=== PATIENT | female | born 1990 | race Caucasian/White ===

== ENCOUNTER 2017-10-03 19:35 | Emergency (ER) | payer MEDICAID, SELFPAY ==
[2017-10-03 19:38] VITALS: BP 138/84; PULSE 116; RESP 26; TEMP 36.7; O2SAT 98; BMI 28.2
[2017-10-03 21:28] LABS: Amphetamine Urine VISTA POSITIVE (<1000 ng/mL); Barbiturate Urine VISTA NEGATIVE (< 200 ng/mL); Benzodiazepine Urine VISTA NEGATIVE (< 200 ng/mL); Cocaine Urine VISTA NEGATIVE (< 300 ng/mL); Ecstacy Urine VISTA POSITIVE (< 500 ng/mL); Methadone Urine VISTA NEGATIVE (< 300 ng/mL); PCP Urine VISTA NEGATIVE (< 25 ng/mL); THC Urine VISTA NEGATIVE (< 50 ng/mL); Vista UDS pH Range 6
--- NOTE | 2017-10-03 21:44 | ED.DCSUM_ITS ---
- ER Visit Summary Date of Service: 10/03/17 Chief Complaint: I do not remember History of Present Illness: The patient is a 26 F with a history of drug abuse and prior heroin overdose who presents with suspected opiate overdose. She was found in a parking lot unresponsive in her vehicle with child in the car. She was ashen with agonal respirations. She responded to Narcan. The patient states that she does not remember what happened beforehand. She states she believes she was on her way to a doctor's appointment. She remembers getting up this morning. When asked if she used any illicit drugs she stated she did not know. On pressing further she states I guess maybe heroin. Currently she has no other complaints. Physical Examination: Afebrile heart rate 116 respiratory rate 26 pulse ox 98% Patient resting comfortably in no distress Alert and oriented to month person place No focal or lateralizing neurological deficits Heart regular rhythm tachycardia Lungs clear Abdomen soft Test Results: Urine drug screen positive for opiates, amphetamine, methamphetamine. Emergency Department Course and Treatment: Although the patient states she does not remember what happened before arriving here she is currently answering all questions appropriately, alert and oriented ?3. She has known history of heroin abuse and was found with agonal respirations responded to Narcan and has opiates on her drug screen. This is consistent with a heroin overdose. At this time the patient is awake with no complaints on reevaluation and will be discharged in police custody. Treatment Plan: [] Disposition: Discharge Impression: Opiate overdose This note was generated with [employer] dictation software. It may contain incorrect words, spelling, and punctuation that were not noted in review of the chart prior to signing ED Disposition - Plan for ED Patient: Chief Complaint: Overdose Referrals: Care Physician,No Primary [Primary Care Provider] -
--- NOTE | 2017-10-03 21:44 | ED.DEP ---
ED Disposition - Plan for ED Patient: Chief Complaint: Overdose Instructions: ED Overdose Opiate Referrals: Care Physician,No Primary [Primary Care Provider] - Elisabeth Garcia MD [STAFF PHYSICIAN] -
[2017-10-03 22:08] VITALS: BP 127/84; PULSE 108; RESP 16; O2SAT 100
== END 2017-10-03 22:09 | disposition home or self-care (01) ==
PROVIDERS: Emergency Provider Emergency Medicine
DX: T40.1X1A Poisoning by heroin, accidental (unintentional), initial encounter (principal); J70.8 Respiratory conditions due to other specified external agents; F11.10 Opioid abuse, uncomplicated; Y92.810 Car as the place of occurrence of the external cause; F32.9 Major depressive disorder, single episode, unspecified; Z72.0 Tobacco use; Z79.899 Other long term (current) drug therapy
CPT/HCPCS: 80307; 99284; J7030